=== PATIENT | female | born 1990 ===

== ENCOUNTER 2016-11-07 22:06 | Emergency (ER) | payer MEDICAID ==
[2016-11-07 22:06] VITALS: BMI 43.2
[2016-11-07 22:13] VITALS: RESP 16; O2SAT 100
--- NOTE | 2016-11-07 23:18 | ED PDOC ---
Upper Extremity Pain/Injury Time Seen by Provider: 11/07/16 22:29 Chief Complaint (Nursing): Headache Chief Complaint (Provider): RIGHT arm swelling History Per: Patient History/Exam Limitations: no limitations Onset/Duration Of Symptoms: Days (2), Gradual, Persistent Quality: Burning, "Pain" (and parasthesias and numbness) Severity: Moderate Exacerbating Factor(s): Nothing Additional Complaint(s): Associated with subtle rash to hand and forearm No fever/chills Past Medical History Reviewed: Historical Data, Nursing Documentation, Vital Signs Vital Signs: Last Vital Signs Temp 98.5 F 11/07/16 22:12 Pulse 89 11/07/16 22:12 Resp 16 11/07/16 22:12 BP 139/85 11/07/16 22:12 Pulse Ox 100 11/07/16 22:12 - Medical History PMH: HTN - Surgical History Surgical History: Cholecystectomy, ( x 1) - Family History Family History: States: No Known Family Hx - Social History Current smoker - smoking cessation education provided: No Alcohol: None Drugs: Denies - Home Medications Home Medications: Ambulatory Orders Medication Instructions Recorded Gabapentin 300 mg PO TID #21 capsule 11/08/16 Valacyclovir HCl [Valtrex] 1,000 mg PO TID #21 tablet 11/08/16 - Allergies Allergies/Adverse Reactions: Allergies Allergy/AdvReac Type Severity Reaction Status Date / Time No Known Allergies Allergy Verified 07/16/13 03:07 Review of Systems ROS Statement: Except As Marked, All Systems Reviewed And Found Negative (and as per HPI) Constitutional: Negative for: Fever, Chills Musculoskeletal: Positive for: Arm Pain Skin: Positive for: Rash, Lesions Neurological: Positive for: Numbness, Headache. Negative for: Weakness, Dizziness Physical Exam - Reviewed Nursing Documentation Reviewed: Yes Vital Signs Reviewed: Yes - Physical Exam Appears: Positive for: Well, Non-toxic, Uncomfortable Head Exam: Positive for: ATRAUMATIC, NORMOCEPHALIC Skin: Positive for: Warm, Dry, Rash (papular patches on RIGHT forearm, white clustered papules on base of RIGHT thumb) Eye Exam: Positive for: EOMI, PERRL ENT: Negative for: Pharyngeal Erythema, Tonsillar Exudate Neck: Positive for: Painless ROM, Supple Cardiovascular/Chest: Positive for: Regular Rate, Rhythm, Chest Non Tender. Negative for: Murmur Respiratory: Positive for: Normal Breath Sounds. Negative for: Wheezing Gastrointestinal/Abdominal: Positive for: Bowel Sounds, Soft. Negative for: Tenderness Back: Positive for: Normal Inspection. Negative for: Vertebral Tenderness Extremity: Positive for: Normal ROM, Other (RIGHT foream). Negative for: Pedal Edema Lymphatic: Negative for: Adenopathy Neurologic/Psych: Positive for: Alert, Motor/Sensory Deficits - Laboratory Results Result Diagrams: 11/07/16 23:15 11/07/16 23:15 - ECG O2 Sat by Pulse Oximetry: 100 Disposition - Clinical Impression Clinical Impression: Arm swelling - Disposition Disposition Time: 00:00 Condition: STABLE Prescriptions: Gabapentin 300 mg PO TID #21 capsule Valacyclovir HCl [Valtrex] 1,000 mg PO TID #21 tablet Print Language: URDU Patient Signed Over To: Sven Flores Handoff Comments: Pending ER workup, reassessment and final ER disposition
[2016-11-07 23:25] LABS: BASO # 0.1 K/uL (0.0-0.2); EOS # 0.3 K/uL (0.0-0.7); EOS % 3.4 % (0.0-4.0); LYMPH # 2.8 K/uL (1.0-4.3); LYMPH % 32.5 % (20.0-40.0); MEAN CELL VOLUME 90.5 fl (81.0-99.0); MEAN CORPUSCULAR HEMOGLOBIN 30.6 pg (27.0-31.0); MEAN CORPUSCULAR HGB CONC 33.8 g/dL (33.0-37.0); MEAN PLATELET VOLUME 7.9 fl (7.2-11.7); NEUT # 4.4 K/uL (1.8-7.0); NEUT % 51.1 % (50.0-75.0); RED CELL DISTRIBUTION WIDTH 12.5 % (11.5-14.5); WHITE BLOOD COUNT 8.6 K/uL (4.8-10.8)
[2016-11-07 23:34] LABS: ALB/GLOB RATIO 1.3 (1.0-2.1); ALKALINE PHOSPHATASE 83 U/L (38-126); ALT/SGPT 43 U/L (9-52); AST/SGOT 36 U/L (14-36); BILIRUBIN,TOTAL 0.5 mg/dl (0.2-1.3); BLOOD UREA NITROGEN 10 mg/dl (7-17); CALCIUM 9.1 mg/dL (8.4-10.2); CARBON DIOXIDE 25 mmol/L (22-30); CHLORIDE 104 mmol/L (98-107); GFR AFRICAN-AMERICAN > 60; GLUCOSE,RANDOM 93 mg/dL (65-105); PHOSPHOROUS 3.4 mg/dl (2.5-4.5); POTASSIUM 3.9 MMOL/L (3.6-5.0); SODIUM 138 mmol/l (132-148); TOTAL PROTEIN 7.8 G/DL (6.3-8.2)
--- NOTE | 2016-11-08 00:36 | ED PDOC ---
- Laboratory Results Result Diagrams: 11/07/16 23:15 11/07/16 23:15 - ECG O2 Sat by Pulse Oximetry: 100 Medical Decision Making Medical Decision Making: Patient s/o to this provider by Dr. Koehler at 0000 pending US and re-eval. 0050: US duplex RUE impression: Normal right upper extremity duplex venous ultrasound. 0125: Patient stable for d/c. Dx: shingles Rx: valtrex, neurontin F/U w/ Dr. Linder in 2 days Scribe Attestation: Documented by Mau Martino acting as a scribe for Sven Flores MD. Provider Scribe Attestation: All medical record entries made by the Scribe were at my direction and personally dictated by me. I have reviewed the chart and agree that the record accurately reflects my personal performance of the history, physical exam, medical decision making, and the department course for this patient. I have also personally directed, reviewed, and agree with the discharge instructions and disposition. Disposition Counseled Patient/Family Regarding: Studies Performed, Diagnosis, Need For Followup, Rx Given - Clinical Impression Clinical Impression: Shingles - POA Present On Arrival: None - Disposition Referrals: David Linder MD [Staff Provider] - Disposition: Routine/Home Disposition Time: 01:25 Condition: STABLE Prescriptions: Gabapentin 300 mg PO TID #21 capsule Valacyclovir HCl [Valtrex] 1,000 mg PO TID #21 tablet Instructions: [place]ela (ED) Print Language: [place]
--- NOTE | 2016-11-08 00:50 | US ---
EXAM: US Duplex Right Upper Extremity Veins CLINICAL HISTORY: 26 years old, female; Pain; Other: Rt arm swollen; Additional info: R/O dvt right arm swelling elevated ddimer TECHNIQUE: Real-time ultrasound scan of the veins of the right upper extremity with color Doppler flow, spectral waveform analysis and compression. COMPARISON: No relevant prior studies available. FINDINGS: Deep veins: Unremarkable. No DVT in the internal jugular, subclavian, axillary, or brachial veins. The veins are compressible with normal color flow and augmentation. Superficial veins: Unremarkable. No thrombus in the visualized basilic and cephalic veins. Soft tissues: No acute findings. IMPRESSION: Normal right upper extremity duplex venous ultrasound.
[2016-11-08 01:47] VITALS: BP 135/80; PULSE 75; TEMP 97.9
== END 2016-11-08 01:48 | disposition home or self-care (01) ==
LOC: H.ER 22:06
DX: R22.31 Localized swelling, mass and lump, right upper limb (principal)